=== PATIENT | male | born 1950 | race Caucasian/White ===

== ENCOUNTER → 2016-05-16 | Outpatient (CLI) | payer OTHER ==
--- NOTE | 2016-05-16 19:46 | DX ---
Abdomen One View, May 16, 2016 at 1232 hours Clinical indication: Ureteral stone follow up. Comparison: April 18, 2015, CT April 11, 2015. Findings: The 8 mm distal ureteral calculus is not definitively seen on today's examination. Phleboli ths are present in the pelvis. No definite calcifications over the kidneys. Bowel gas pattern is norm al. Impression: No definite interureteral calculus. Phleboliths again noted in the pelvis.
== END ==
LOC: FIMAGING 12:23
PROVIDERS: ATTEND Urology
DX: Z09 Encounter for follow-up examination after completed treatment for conditions other than malignant neoplasm (principal)

== ENCOUNTER 2016-10-03 09:41 | Day surgery (SDC) | payer OTHER ==
[2016-10-03] MEDS ORDERED: fentaNYL 100 MCG/2 ML INJ IVP ONE (10:19)
[2016-10-03] MEDS ORDERED: BENZOCAINE UNIT DOSE SPRAY HURRICAINE MM ONE (10:19)
[2016-10-03] MEDS ORDERED: NS 500 ML IV ONE (10:19)
[2016-10-03] MEDS ORDERED: PROPOFOL 200 MG/20 ML VIAL IVP ONE (10:19)
--- NOTE | 2016-10-03 11:06 | CPEKG ---
Heart Rate: 125 RR Interval: 480 QRSD Interval: 90 QT Interval: 340 QTC Interval: 491 QRS [place]: 37 T Wave [place]: 25 EKG Severity - ABNORMAL ECG - EKG Impression: ATRIAL FLUTTER WITH 2:1 AV BLOCK EKG Impression: BORDERLINE PROLONGED QT INTERVAL EKG Impression: ATRIAL FLUTTER IS NEW IN COMPARISON TO PRIOR Electronically Signed By: Satnam Cooper 03-Oct-2016 12:42:21
[2016-10-03 11:40] LABS: APTT 35.9 SEC (23.0-38.0); INR 1.35 (0.83-1.16); PROTIME(PATIENT) 16.7 SEC (12.0-15.0)
[2016-10-03 11:58] LABS: ANION GAP 13 mEq/L (8-16); CALCIUM 8.9 mg/dL (8.5-10.4); CARBON DIOXIDE 22 mEq/l (22-31); CHLORIDE 105 mEq/L (97-110); CREATININE 0.9 mg/dL (0.7-1.3); GLOMERULAR FILTRATION RATE > 60; GLUCOSE 106 mg/dL (70-100); MAGNESIUM 2.1 mg/dL (1.6-2.3); POTASSIUM 4.2 mEq/L (3.5-5.2); SODIUM 140 mEq/L (134-144)
--- NOTE | 2016-10-04 10:02 | CPEKG ---
Heart Rate: 79 RR Interval: 759 P-R Interval: 152 QRSD Interval: 92 QT Interval: 376 QTC Interval: 432 P [place]: 62 QRS [place]: 67 T Wave [place]: 14 EKG Severity - NORMAL ECG - EKG Impression: SINUS RHYTHM Electronically Signed By: Usman Horne 04-Oct-2016 10:59:52
--- NOTE | 2016-10-04 13:15 | EPPROC ---
Electrophysiology Procedure Note: Procedure: CV Indication: LA tachycardia with which pt was symptomatic Procedure: pt sedated by anesthesiology staff. HUNTER performed which is dictated separately. Pt CV using 200J of synchronized DCCV. Pt successfully converted to SR Conclusion: Successful CV Patient Problems: Problems Problem Status Onset Atrial flutter Acute S/P ablation of atrial fibrillation Acute Longstanding persistent atrial fibrillation Chronic Tachycardia induced cardiomyopathy Chronic
--- NOTE | 2016-10-05 09:30 | ECHO ---
[id number] + + [address] : : [facility] [address] : : [phone] + + Transesophageal Echocardiographic Report + ---+ :Name: AMY RAMIREZ BStudy Date: 10/03/2016 11:50 AM : : Hospital Admission Number: [id number] Location: C: :: 1950 Gender: Male : :Age: 66 yrs Race: WH : :Reason For Study: Eval LV Fx : :History: New onset of atrial fibrillation. : + ---+ Left Ventricle Ejection Fraction = 30%. Atria Atrial appendage has been ligated; no evidence of flow. Spontaneous contrast in LA. Mitral Valve The mitral valve is normal in structure and function. There is no mitral valve stenosis. There is no mitral regurgitation noted. Tricuspid Valve There is trace tricuspid regurgitation. Aortic Valve The aortic valve is normal in structure and function. The aortic valve is trileaflet. There is no aortic stenosis. There is no aortic insufficiency. Pulmonic Valve The pulmonic valve is normal in structure and function. There is no pulmonic valvular regurgitation. Conclusion A 2D transesophageal echocardiogram with color flow Doppler was performed. Ejection Fraction = 30%. Atrial appendage has been ligated; no evidence of flow Spontaneous contrast in LA. The mitral valve is normal in structure and function. There is trace tricuspid regurgitation. The aortic valve is normal in structure and function. The aortic valve is trileaflet. Final Reading Physician: Susan Cardenas signed on 10/05/2016 09:28 AM Ordering Physician: Usman Horne Performed By: Usman Horne MD
== END 2016-10-03 14:37 | disposition home or self-care (01) ==
LOC: FCATH 09:41
PROVIDERS: ATTEND Internal Medicine Cardiovascular Disease
PROC: 5A2204Z Restoration of Cardiac Rhythm, Single (ICD-10-PCS; principal; 2016-10-03)
PROC: B245ZZ4 Ultrasonography of Left Heart, Transesophageal (ICD-10-PCS; principal; 2016-10-03)
DX: I47.1 Supraventricular tachycardia (principal); E78.5 Hyperlipidemia, unspecified; I48.91 Unspecified atrial fibrillation; I48.92 Unspecified atrial flutter

== ENCOUNTER → 2016-10-03 | Outpatient (CLI) | payer OTHER ==
[~2016-10-03] MED LIST: PROPOFOL 200 MG/20 ML VIAL ONE
== END ==
LOC: FIMAGING 09:44
PROVIDERS: ATTEND Internal Medicine Cardiovascular Disease
DX: R05 Cough (principal); R50.9 Fever, unspecified
CPT/HCPCS: J2704

== ENCOUNTER → 2016-10-10 | Outpatient (CLI) | payer OTHER ==
[~2016-10-10] MED LIST changes: +IOPAMIDOL (ISOVUE 370) 100 ML BTL IV ONE; -PROPOFOL 200 MG/20 ML VIAL ONE
== END ==
LOC: FIMAGING 11:58
PROVIDERS: ATTEND Internal Medicine Cardiovascular Disease
DX: Z01.818 Encounter for other preprocedural examination (principal); I48.91 Unspecified atrial fibrillation; I47.1 Supraventricular tachycardia
CPT/HCPCS: Q9967

== ENCOUNTER 2016-10-14 11:00 | Observation (INO) | payer OTHER ==
[2016-10-14] MEDS ORDERED: NS 1,000 ML IV ONE (11:09)
--- NOTE | 2016-10-14 11:47 | CPEKG ---
Heart Rate: 138 RR Interval: 435 QRSD Interval: 88 QT Interval: 336 QTC Interval: 509 QRS [place]: 50 T Wave [place]: 41 EKG Severity - ABNORMAL ECG - EKG Impression: A-FLUTTER W/ VARIED AV BLOCK, A-RATE 283 EKG Impression: PROLONGED QT INTERVAL EKG Impression: ATRIAL FLUTTER IS NEW IN COMPARISON TO PRIOR ECG (NORMAL SINUS RHYTHM) Electronically Signed By: Satnam Cooper 15-Oct-2016 12:32:36
[2016-10-14] MEDS ORDERED: BUPIVACAINE 0.5% 30 ML SDV ONE (12:07)
[2016-10-14] MEDS ORDERED: ISOPROTERENOL HCL 0.2 MG/ML 5ML AMP ONE (12:07)
[2016-10-14] MEDS ORDERED: HEPARIN 10,000 UNIT/10 ML MDV ONE ×2 (12:07→13:02)
[2016-10-14] MEDS ORDERED: LIDOCAINE 1% 300 MG/30 ML SDV ONE (12:07)
[2016-10-14 12:25] LABS: % IMMATURE GRANULYOCYTES 0.5 % (0.0-1.1); ABSOLUTE IMMATURE GRANULOCYTES 0.02 10^3/uL (0.00-0.10); ADD DIFF? NO; ADD MORPH? NO; ADD SCAN? NO; ATYPICAL LYMPHOCYTE FLAG 10 (0-99); FRAGMENT RBC FLAG 0 (0-99); HEMATOCRIT 49.2 % (40.0-51.0); HEMOGLOBIN 16.7 g/dL (13.7-17.5); LEFT SHIFT FLG 0 (0-99); LIPEMIA HEMOLYSIS FLAG 90 (0-99); MEAN CELL HEMOGLOBIN 30.6 pg (27.9-34.1); MEAN CELL HEMOGLOBIN CONCENTR. 33.9 g/dL (32.4-36.7); MEAN CELL VOLUME 90.3 fL (81.5-99.8); MEAN PLATELET VOLUME 8.8 fL (8.7-11.7); PLATELET CLUMPS FLAG 0 (0-99); PLATELET COUNT 290 10^3/uL (150-400); RED BLOOD CELL COUNT 5.45 10^6/uL (4.40-6.38); RED CELL DISTRIBUTION WIDTH 13.2 % (11.5-15.2)
[2016-10-14 12:42] LABS: INR 1.07 (0.83-1.16); PROTIME(PATIENT) 13.8 SEC (12.0-15.0)
[2016-10-14 12:43] LABS: APTT 28.6 SEC (23.0-38.0)
[2016-10-14 12:46] LABS: ANION GAP 13 mEq/L (8-16); CALCIUM 9.5 mg/dL (8.5-10.4); CARBON DIOXIDE 21 mEq/l (22-31); CHLORIDE 107 mEq/L (97-110); CREATININE 0.8 mg/dL (0.7-1.3); GLOMERULAR FILTRATION RATE > 60; GLUCOSE 88 mg/dL (70-100); MAGNESIUM 2.2 mg/dL (1.6-2.3); POTASSIUM 4.4 mEq/L (3.5-5.2); SODIUM 141 mEq/L (134-144)
[2016-10-14] MEDS ORDERED: REMIFENTANIL HCL 1 MG VIAL ONE ×2 (13:02→15:22)
[2016-10-14] MEDS ORDERED: fentaNYL 100 MCG/2 ML INJ ONE (13:02)
[2016-10-14] MEDS ORDERED: PROPOFOL/EMULSION 500 MG/50 ML BOTTLE IV ONE ×2 (13:03→15:22)
[2016-10-14] MEDS ORDERED: ROCURONIUM 100 MG/10 ML VIAL ONE (13:05)
[2016-10-14] MEDS ORDERED: HEPARIN/DEXTROSE 25,000 UNIT/500 ML BAG ONE (13:37)
[2016-10-14] MEDS ORDERED: ACETAMINOPHEN 325 MG TAB PO PRN (17:41)
[2016-10-14] MEDS ORDERED: OXYCODONE/APAP 5/325 TAB PO PRN (17:41)
[2016-10-14] MEDS ORDERED: ONDANSETRON 4 MG/2 ML VIAL IVP PRN (17:41)
[2016-10-14] MEDS ORDERED: PROTAMINE SULFATE 50 MG/5 ML VIAL IVP ONE (17:42)
--- NOTE | 2016-10-14 19:25 | CPEKG ---
Heart Rate: 90 RR Interval: 667 P-R Interval: 148 QRSD Interval: 98 QT Interval: 404 QTC Interval: 495 P [place]: 54 QRS [place]: 51 T Wave [place]: 174 EKG Severity - ABNORMAL ECG - EKG Impression: SINUS RHYTHM EKG Impression: NONSPECIFIC T ABNORMALITIES, LATERAL LEADS EKG Impression: BORDERLINE PROLONGED QT INTERVAL EKG Impression: SINUS RHYTHM HAS REPLACED ATRIAL FLUTTER Electronically Signed By: Satnam Cooper 15-Oct-2016 12:35:08
[2016-10-14 19:40] LABS: ANION GAP 9 mEq/L (8-16); CALCIUM 7.9 mg/dL (8.5-10.4); CARBON DIOXIDE 21 mEq/l (22-31); CHLORIDE 111 mEq/L (97-110); CREATININE 0.8 mg/dL (0.7-1.3); GLOMERULAR FILTRATION RATE > 60; GLUCOSE 130 mg/dL (70-100); MAGNESIUM 1.9 mg/dL (1.6-2.3); POTASSIUM 3.9 mEq/L (3.5-5.2); SODIUM 141 mEq/L (134-144)
[2016-10-14] MEDS ORDERED: PROTOCOL MAGNESIUM 1 DOSE IV PRN (20:50)
[2016-10-14] MEDS ORDERED: PROTOCOL POTASSIUM 1 DOSE MISC PRN (20:50)
[2016-10-14] MEDS ORDERED: ATORVASTATIN CALCIUM 10 MG TAB PO SCH (21:00)
[2016-10-14] MEDS: METOPROLOL TARTRATE 50 MG TAB PO SCH (21:30)
[2016-10-14] MEDS ORDERED: POTASSIUM CL 20 MEQ/15 ML UDCUP TUBE ONE (21:30)
[2016-10-14] MEDS ORDERED: MAGNESIUM SULF 1 GM/DEXTROSE 100 ML IV ONE (22:00)
[2016-10-14] MEDS ORDERED: ENOXAPARIN 80 MG/0.8 ML SYR SC SCH (23:00)
[2016-10-15] MEDS: ENOXAPARIN 80 MG/0.8 ML SYR SC SCH ×2 (02:12→08:58)
[2016-10-15 05:52] LABS: % IMMATURE GRANULYOCYTES 0.4 % (0.0-1.1); ABSOLUTE IMMATURE GRANULOCYTES 0.03 10^3/uL (0.00-0.10); ADD DIFF? NO; ADD MORPH? NO; ADD SCAN? NO; ATYPICAL LYMPHOCYTE FLAG 0 (0-99); FRAGMENT RBC FLAG 0 (0-99); HEMATOCRIT 39.3 % (40.0-51.0); HEMOGLOBIN 13.2 g/dL (13.7-17.5); LEFT SHIFT FLG 0 (0-99); LIPEMIA HEMOLYSIS FLAG 80 (0-99); MEAN CELL HEMOGLOBIN CONCENTR. 33.6 g/dL (32.4-36.7); MEAN CELL VOLUME 92.3 fL (81.5-99.8); MEAN PLATELET VOLUME 8.7 fL (8.7-11.7); PLATELET CLUMPS FLAG 0 (0-99); PLATELET COUNT 240 10^3/uL (150-400); RED BLOOD CELL COUNT 4.26 10^6/uL (4.40-6.38); RED CELL DISTRIBUTION WIDTH 13.3 % (11.5-15.2)
[2016-10-15 06:04] LABS: INR 1.18 (0.83-1.16)
[2016-10-15] MEDS: METOPROLOL TARTRATE 50 MG TAB PO SCH (08:37)
[2016-10-15 08:59] LABS: ANION GAP 6 mEq/L (8-16); CALCIUM 8.7 mg/dL (8.5-10.4); CARBON DIOXIDE 22 mEq/l (22-31); CHLORIDE 110 mEq/L (97-110); CREATININE 0.8 mg/dL (0.7-1.3); GLOMERULAR FILTRATION RATE > 60; GLUCOSE 101 mg/dL (70-100); MAGNESIUM 2.3 mg/dL (1.6-2.3); POTASSIUM 4.1 mEq/L (3.5-5.2); SODIUM 138 mEq/L (134-144)
[2016-10-15] MEDS ORDERED: PANTOPRAZOLE SODIUM 40 MG TAB PO SCH (09:00)
--- NOTE | 2016-10-15 09:02 | CPEKG ---
Heart Rate: 66 RR Interval: 909 P-R Interval: 152 QRSD Interval: 100 QT Interval: 444 QTC Interval: 466 P [place]: 61 QRS [place]: 75 T Wave [place]: 126 EKG Severity - ABNORMAL ECG - EKG Impression: SINUS RHYTHM EKG Impression: VENTRICULAR PREMATURE COMPLEX EKG Impression: NONSPECIFIC T ABNORMALITIES, LATERAL LEADS Electronically Signed By: Momo Wynn 15-Oct-2016 13:13:45
--- NOTE | 2016-10-15 09:12 | ECHO ---
[id number] + + [address] : : [place] [address] : : [phone] + + Adult Echocardiographic Report + ---+ :Name: AMY RAMIREZ BStudy Date: 10/15/2016 07:53 AM : : Hospital Admission Number: [id number] Location: 249: :: 1950 Gender: Male Height: 72 in : :Age: 66 yrs Race: WH Weight: 178 lb : :Reason For Study: Eval LV Fx : : BSA: 2.0 meters2 : :History: Post EP : + ---+ MMode/2D Measurements \T\ Calculations IVSd: 0.72 cm LVIDd: 5.3 cm FS: 24.4 % Ao root diam: 3.3 cm LVPWd: 0.90 cm LVIDs: 4.0 cm EDV(Teich): 135.6 ml ACS: 2.1 cm ESV(Teich): 70.4 ml LA dimension: 4.1 cm EF(Teich): 48.1 % Normal Measurement Values: + + :LVIDd (3.5-5.7cm) IVSd (0.6-1.1cm) LVPWd (0.6-1.1cm) Aortic Root (2.0-3.7cm)Left Atrium (1.5-4.0cm): :LV Vol(d) (76-115ml) LV Vol(s) (29-48ml) Ejec Fraction (50-65%)PV Smith (0.6- 1.2m/s) TV Smith (0.4-1.0m/s) : :MV E [place] (0.8-1.0m/s)MV A [place] (0.3-1.0m/s)LVOT Smith (0.7-1.2m/s) Asc Ao Smith ( 0.9-1.8m/s) : + + Doppler Measurements \T\ Calculations MV E max smith: Ao V2 max: LV V1 max: MR max smith: 65.6 cm/sec 129.7 cm/sec 82.4 cm/sec 384.6 cm/sec Ao max P.7 mmHgLV V1 max PG: MR max P.7 mmHg 59.2 mmHg PA V2 max: TR max smith: 99.1 cm/sec 306.8 cm/sec PA max P.9 mmHg TR max P.6 mmHg RAP systole: 5.0 mmHg RVSP(TR): 42.6 mmHg Left Ventricle The left ventricle is normal in size. There is normal left ventricular wall thickness. Ejection Fraction = 50%. Right Ventricle The right ventricle is normal in size and function. Atria The left atrium is mild to moderately dilated. The right atrium is mildly dilated. There is a small transeptal puncture of the interatrial septum post EP procedure. Mitral Valve The mitral valve is normal. There is no mitral valve stenosis. There is mild mitral regurgitation. Tricuspid Valve Normal tricuspid valve. There is trace to mild tricuspid regurgitation. Right ventricular systolic pressure is 42mmHg. There is Doppler evidence for mild pulmonary hypertension. Aortic Valve The aortic valve is trileaflet. There is no aortic stenosis. There is no aortic insufficiency. Pulmonic Valve The pulmonic valve is normal in structure and function. There is no pulmonic valvular regurgitation. Great Vessels The aortic root is normal size. Pericardium/Pleural There is no pericardial effusion. Conclusion A complete two-dimensional transthoracic echocardiogram was performed (2D, M-mode, Doppler and color flow Doppler). Ejection Fraction = 50%. The left atrium is mild to moderately dilated. The mitral valve is normal. There is mild mitral regurgitation. There is trace to mild tricuspid regurgitation. The aortic valve is trileaflet. There is no aortic insufficiency. There is no pericardial effusion. There is a small transeptal puncture of the interatrial septum post EP procedure. Right ventricular systolic pressure is 42mmHg. There is Doppler evidence for mild pulmonary hypertension. Final Reading Physician: Momo Wynn MD electronically signed on 10/15/2016 09:10 AM Ordering Physician: Momo Wynn Performed By: Cj Prather, RDCS
[2016-10-15 09:29] LABS: CREATINE KINASE-MB FRACTION 4.54 ng/mL (0-3.19)
[2016-10-15 09:44] LABS: CK-MB INTERPRETATION NEGATIVE (NEGATIVE)
--- NOTE | 2016-10-15 13:12 | EPPROC ---
Electrophysiology Procedure Note: ELECTROPHYSIOLOGIC STUDY AND CATHETER MEDIATED ABLATION FOR LEFT ATRIAL TACHYCARDIA (POST SURGICAL AFIB ABLATION) AND CT ISTHMUS DEPENDENT ATRIAL FLUTTER Procedures performed: 05082-56 EP evaluation with RA/RV/LA pace/record, with arrhythmia induction 42402-95 EP evaluation with RA/RV pace record, insert/reposition catheter, with arrhythmia induction 44257 Atrial fibrillation ablation Second arrhythmia 96303 3D mapping Intracardiac echocardiogram Transseptal puncture Fluoroscopy INDICATION: Longstanding persistent atrial fibrillation Atrial tachycardia post surgical AFIB ablation (Atricure) + NIYAH excision PROCEDURE: The patient arrived in the Electrophysiology Laboratory in the fasting state. The right groin, left groin and right infraclavicular area were prepped and draped in the usual sterile fashion. Anesthesiologist administered general anesthesia Dr. Lio Sterling. All catheters were placed percutaneously using the Seldinger technique and advanced into position under fluoroscopic guidance. One #7 Bel[place]ian deflectable octapolar electrode catheter was placed in the His-bundle position via the left femoral vein (2mm spacing, IVC electrode for unipolar recordings). This catheter was placed in the coronary sinus after transseptal puncture. One #8 [place]ian AcuNaV ultrasound catheter was placed in the left femoral vein and advanced into the right atrium. One #4 [place]ian sheath was inserted into the left femoral artery via percutaneous technique and used for continuous arterial blood pressure monitoring and intermittent ACT determination. Programmed stimulation was performed from the right atrium, left atrium (CS) and right ventricle. There was no evidence of AV accessory pathway. Intracardiac echo evaluation of the left atrium and pulmonary veins was performed. Baseline ACT was drawn and heparin bolus was administered and heparin drip was started prior to transseptal puncture. ACT was checked every 15 minutes and maintained in the range of 350-400 seconds. One SL1 sheath was inserted into the right femoral vein and advanced into the right atrium. Transseptal puncture was performed under intracardiac ultrasound , fluoroscopic and hemodynamic guidance placing the sheath into the left atrium. [place] RF needle (C0 curve) was used. The mean left atrial pressure was 14 mmHg. At baseline, the rhythm was sinus rhythm. Conventional pulmonary vein angiography was done using SL1 sheaths. PV anatomy : distinct LSPV, LIPV, RSPV, RIPV. Severe LA enlargement. AT#1, CL 220 ms was easily induced with burst pacing during isoproterenol infusion. A high-resolution electroanatomical map of the left atrium and pulmonary veins was obtained during AT using Pentaray catheter. CT angiography of the pulmonary veins and left atrium obtained previously was used in the CARTO -MERGE system for guidance in placing the catheter. Intracardiac ultrasound was used to assist in placing the mapping catheter outside the antrum of the pulmonary veins. This map demonstrated that all 4 PV and the posterior left atrial box lesion set was isolated with voltage <0.05mV. There was a small area of fragmented potentials in the posterior left atrium near the LIPV that was potential for left atrial reentry and therefore ablated. Subsequent map showed that post ablation this area was dense scar. An esophageal temperature probe (12 electrode, Circa) was placed by the anesthesiologist at the beginning of the procedure. Esophageal temperature was monitored continuously and RF ablation was interrupted if there was a temperature rise >0.5 C. No esophageal temperature rise was seen. AT#1 was a counterclockwise reentry around mitral isthmus confirmed by by 3D map and entrainment mapping. Ablation was performed from mitral annulus to LIPV scar area. This changed AT#1 to AT#2, CL 240 ms. Block across the mitral isthmus line was confirmed by pacing maneuvers and demonstrating scar with high resolution mapping. AT#2 was consistent with atrial flutter. Catheters were withdrawn into the right atrium. Agilis sheath was used. Ablation was performed along CT isthmus and bidirectional block achieved across the CT isthmus. ICE imaging was consistent with pre ablation imaging; moreover it showed no pericardial effusion or LA/NIYAH thrombus at the end of the procedure. The catheters were withdrawn. SL1 sheaths were changed to 9 Fr short sheaths. Protamine was given. The sheaths were removed and manual pressure was used for hemostasis. The patient was recovered from anesthesia. There were no complications. CONCLUSIONS: 1. Longstanding persistent atrial fibrillation sp Atricure procedure. 2. Successful ablation of macroreentrant left atrial tachycardia ( counterclockwise reentry around mitral annulus). 3. Successful ablation of cavotricuspid isthmus dependent right atrial flutter. 4. No apparent complications. Patient Problems: Problems Problem Status Onset Longstanding persistent atrial fibrillation Chronic Tachycardia induced cardiomyopathy Chronic S/P ablation of atrial fibrillation Acute Atrial flutter Acute
[2016-10-15 13:26] VITALS: BP 109/63; PULSE 69; RESP 14; TEMP 98; O2SAT 97
--- NOTE | 2016-10-15 15:02 | GDS ---
[f rep st] DISCHARGE SUMMARY ADMITTING DIAGNOSES: 1. Tachycardia-induced cardiomyopathy. 2. Persistent atrial fibrillation, status post AtriCure procedure in April. 3. Left atrial tachycardia. 4. Atrial flutter. DISCHARGE DIAGNOSES: 1. Tachycardia-induced cardiomyopathy, persistent atrial fibrillation, status post AtriCure procedure in April 2016. 2. Left atrial tachycardia, status post ablation. 3. Atrial flutter, status post ablation. BRIEF HISTORY: The patient is a 66-year-old man with long-standing persistent atrial fibrillation who underwent a thoracoscopic left atrial AtriCure procedure and left atrial appendage ligation on April 17, 2016, by Dr. Mark. He also had a LINQ implanted. No atrial fibrillation was seen since April, until the end of September. He was found to be in left atrial tachycardia and atrial flutter. He was symptomatic with this rhythm and had undergone cardioversion for it. HOSPITAL COURSE: He underwent successful ablation of the macro re-entrant left atrial tachycardia by Dr. Wynn. This was counterclockwise re-entry around the mitral annulus. He had a successful ablation of the cavotricuspid isthmus- dependent right atrial flutter. He was stable overnight. Vital signs remained stable. He had no bleeding at his groin sites. He denied any leg discomfort or bleeding at his groin sites. TESTING DONE: Echocardiogram on 10/15/2016, demonstrated ejection fraction of 50%, [id number] dilated left atrium, mild MR, [id number] TR, and no pericardial effusion. EKG demonstrated sinus rhythm with PVCs and nonspecific T -wave inversion in V5 and V6. LAB WORK: WBC 8.34, hemoglobin 13.2, hematocrit 39.3, platelets 240. PT 15, INR 1.18. Sodium 138, potassium 4.1, chloride 110, bicarb 22, BUN 10, creatinine 0.8, glucose 101, CK-MB was 4.54. Troponin was 1.130, which was elevated and to be expected post ablation. PHYSICAL EXAM: VITAL SIGNS: Blood pressure is 102/63, pulse 76, respirations 17, temperature 36.7, room air saturation is 95%. GENERAL: He is alert and oriented, sitting up in his chair, in no acute distress. CARDIAC: Regular rate and rhythm without murmur, rub, or gallop. LUNGS: Clear to auscultation. ABDOMEN: Soft, and nontender. No lower back tenderness. EXTREMITIES: Warm. No discoloration. No lower extremity edema, +2 pedal pulses bilaterally. Groin sites are without bleeding or ecchymosis. No bruit. DISCHARGE MEDICATIONS: Please see discharge medication reconciliation form. Of note, metoprolol had previously been decreased to 50 mg per day, and this may be decreased in the future, depending on clinical course. He was started on omeprazole 20 mg p.o. that he is to take for 6 weeks post ablation. He will restart Eliquis this evening. DISCHARGE INSTRUCTIONS: Reviewed activity restrictions, and these were written on his discharge for. FOLLOWUP: Patient has a followup with Dr. Wynn on October 31 at 10:15. /[id number]/MODL MTDD
== END 2016-10-15 13:39 | disposition home or self-care (01) ==
LOC: FCATH 11:00 → F2W 16:46 → F2N 17:42
PROVIDERS: ADMIT Internal Medicine Cardiovascular Disease; ATTEND Internal Medicine Cardiovascular Disease
DX: I48.1 Persistent atrial fibrillation (principal); I47.1 Supraventricular tachycardia; I48.92 Unspecified atrial flutter; I42.8 Other cardiomyopathies; R42 Dizziness and giddiness; R00.2 Palpitations; Z79.01 Long term (current) use of anticoagulants
CPT/HCPCS: 93005; 93306; 93312; 93613; 93621; 93623; 93653; 93655; 93656; 93662; C1731; C1732; C1766; G0378; C1759; C1893; J1644; J1650; J2704; J2720; J3010; J3475

== ENCOUNTER → 2017-07-29 | Outpatient (CLI) | payer OTHER | LOC: FIMAGING 11:32 | PROVIDERS: ATTEND Specialist | DX: N20.0 Calculus of kidney (principal); Z87.442 Personal history of urinary calculi ==

== ENCOUNTER → 2018-08-04 | Outpatient (CLI) | payer OTHER | LOC: FIMAGING 13:15 | PROVIDERS: ATTEND Specialist | DX: N20.0 Calculus of kidney (principal) ==

== ENCOUNTER → 2018-09-03 | Outpatient (CLI) | payer OTHER | LOC: FIMAGING 15:15 | PROVIDERS: ATTEND Specialist | DX: N20.0 Calculus of kidney (principal) ==